=== PATIENT | male | born 1970 | race Caucasian/White ===

== ENCOUNTER 2017-07-14 18:32 | Emergency (ER) | payer OTHER ==
[~2017-07-14] VITALS: Ht 170.2 cm; Wt 86.0 kg
[~2017-07-14 18:32] MED LIST: DESV50TA PO; HYDR25TA PO
[2017-07-14] MEDS ORDERED: METF500T4 PO (18:43)
[2017-07-14 18:47] LABS: GLUCOSE,POINT OF CARE 103 MG/DL (70-110)
[2017-07-14 19:14] VITALS: BP 131/95
[2017-07-14] MEDS ORDERED: KETOROLAC TROMETHAMINE 30 MG/ML VIAL IM ONE (19:30)
[2017-07-14] MEDS ORDERED: LIDOCAINE HCL 5% TRANSDERMAL PATCH TD ONE (19:30)
== END 2017-07-14 19:43 | disposition home or self-care (01) ==
LOC: EMS 18:33
DX: M54.40 Lumbago with sciatica, unspecified side (principal); G89.29 Other chronic pain; I10 Essential (primary) hypertension
CPT/HCPCS: 82962; 96372; 99283; J1885

== ENCOUNTER 2017-10-21 11:31 | Emergency (ER) | payer OTHER ==
[~2017-10-21] VITALS: Ht 175.3 cm; Wt 81.8 kg
[~2017-10-21 11:31] MED LIST changes: +METF500T4 PO
[2017-10-21 11:48] LABS: GLUCOSE,POINT OF CARE 137 MG/DL (70-110)
[2017-10-21] MEDS ORDERED: KETOROLAC TROMETHAMINE 60 MG/2 ML VIAL IM ONE (14:00)
[2017-10-21] MEDS ORDERED: PredniSONE 20 MG TABLET PO ONE (14:00)
[2017-10-21] MEDS ORDERED: DIAZEPAM 5 MG TABLET PO ONE (14:00)
[2017-10-21 14:44] VITALS: BP 131/77
== END 2017-10-21 14:47 | disposition home or self-care (01) ==
LOC: EMS 11:32
DX: M54.41 Lumbago with sciatica, right side (principal); I10 Essential (primary) hypertension; F41.9 Anxiety disorder, unspecified; F32.9 Major depressive disorder, single episode, unspecified
CPT/HCPCS: 82962; 99283; 96372; J1885; J7512

== ENCOUNTER 2018-06-13 22:43 | Emergency (ER) | payer OTHER ==
[~2018-06-13] VITALS: Ht 172.7 cm; Wt 84.1 kg
[~2018-06-13 22:43] MED LIST changes: -METF500T4 PO; +METF500T6 PO
[2018-06-13 23:44] LABS: GLUCOSE,POINT OF CARE 141 MG/DL (70-110)
[2018-06-13 23:57] LABS: BASOPHILS % (AUTO) 0.5 % (0.0-2.0); EOSINOPHILS % (AUTO) 4.8 % (1.0-6.0); HEMATOCRIT 42.3 % (41-53); HEMOGLOBIN 13.8 g/dL (13.5-17.5); LYMPHOCYTES % (AUTO) 30.2 % (22.0-44.0); MEAN CORPUSCULAR HEMOGLOBIN 28.4 pg (26.0-34.0); MEAN CORPUSCULAR HGB CONC 32.8 G/dL (31.0-37.0); MEAN CORPUSCULAR VOLUME 87 fL (80-100); MONOCYTES # (AUTO) 0.9 K/uL (0.1-1.0); MONOCYTES % (AUTO) 6.9 % (2.0-9.0); NEUTROPHILS # (AUTO) 7.6 K/uL (1.8-7.7); NEUTROPHILS % (AUTO) 57.6 % (40.0-70.0); PLATELET COUNT (AUTO) 388 K/uL (150-450); RED BLOOD CELL COUNT(AUTO) 4.87 MIL/uL (4.50-5.90); RED CELL DISTRIBUTION WIDTH 14.3 % (11.5-14.5)
[2018-06-14 00:13] LABS: ANION GAP 9 mmol/L (8-16); CALCIUM, TOTAL 8.9 mg/dL (8.8-10.5); CARBON DIOXIDE 29 mmol/L (22-29); CHLORIDE 105 mmol/L (98-107); GLOMERULAR FILTR. RATE CALC > 60 mL/min (>60); GLUCOSE,RANDOM 120 mg/dL (70-110); POTASSIUM 3.2 mmol/L (3.5-5.1); SODIUM SERUM 143 mmol/L (136-145); UREA NITROGEN, BLOOD 12 mg/dL (7-18)
[2018-06-14 00:16] LABS: ALANINE AMINOTRANSFERASE 23 U/L (12-78); ALBUMIN 3.6 g/dL (3.4-5.0); ALKALINE PHOSPHATASE 69 U/L (46-116); ASPARTATE AMINOTRANSFERASE 18 U/L (15-37); BILIRUBIN,TOTAL 0.5 mg/dL (0.1-1.0); TOTAL PROTEIN, SERUM 6.9 g/dL (6.4-8.2)
[2018-06-14 02:29] LABS: AMPHET/METH SCREEN,URINE NEGATIVE (NEGATIVE); BARBITURATE SCREEN, URINE NEGATIVE (NEGATIVE); BENZODIAZEPINES SCREEN,URINE NEGATIVE (NEGATIVE); CANNABINOID SCREEN,URINE POSITIVE (NEGATIVE); COCAINE SCREEN,URINE NEGATIVE (NEGATIVE); METHADONE SCREEN, URINE NEGATIVE (NEGATIVE); OPIATE SCREEN,URINE NEGATIVE (NEGATIVE); PHENCYCLIDINE SCREEN,URINE NEGATIVE (NEGATIVE)
[2018-06-14] MEDS: IBUPROFEN 800 MG TABLET PO ONE (02:43)
[2018-06-14] MEDS: HYDROCODONE/ACETAMINOPHEN 5-325 MG TABLET PO ONE (02:43)
[2018-06-14 02:47] VITALS: BP 130/78
== END 2018-06-14 02:51 | disposition home or self-care (01) ==
LOC: EMS 22:44
DX: F32.9 Major depressive disorder, single episode, unspecified (principal); M54.31 Sciatica, right side; F41.9 Anxiety disorder, unspecified; I10 Essential (primary) hypertension; G51.0 Bell's palsy; Z79.899 Other long term (current) drug therapy
CPT/HCPCS: 36415; 80053; 80307; 82962; 85025; 99284; G0480

== ENCOUNTER 2020-05-15 12:21 | Emergency (ER) | payer OTHER ==
[~2020-05-15] VITALS: Ht 170.2 cm; Wt 95.5 kg
[2020-05-15] MEDS ORDERED: IBUPROFEN 400 MG TABLET PO ONE (13:15)
[2020-05-15 16:28] VITALS: BP 120/80
== END 2020-05-15 15:15 | disposition home or self-care (01) ==
LOC: EMS 12:29
DX: M72.2 Plantar fascial fibromatosis (principal); F17.210 Nicotine dependence, cigarettes, uncomplicated; E11.9 Type 2 diabetes mellitus without complications; F12.90 Cannabis use, unspecified, uncomplicated; I10 Essential (primary) hypertension; F32.9 Major depressive disorder, single episode, unspecified; F41.9 Anxiety disorder, unspecified
CPT/HCPCS: 99406